=== PATIENT | male | born 1985 | race Caucasian/White ===

== ENCOUNTER 2018-09-20 18:06 | Emergency (ER) | payer SELFPAY ==
[2018-09-20] MEDS ORDERED: Lidocaine 1% (PF) 30 ML VIAL ONE (18:48)
--- NOTE | 2018-09-20 19:55 | RAD ---
RIGHT KNEE 4 VIEWS: Date: 09/26/18 HISTORY: Pain. COMPARISON: None. FINDINGS: No acute fracture or malalignment. There is low grade medial capsular calcification, which may be seq uelae of prior injury. No significant joint effusion. IMPRESSION: No acute abnormality. POS: HOME
[2018-09-20 23:07] LABS: Body Fluid Source SYNOVIAL FLUID
[2018-09-20 23:08] LABS: BF Color Yellow; BF RBC Count - Manual 218 /cumm; BF WBC/Nonhematics Ct. - Manua 741 /cumm; Clarity Cloudy/Turbid (Clear); Tube # EDTA
[2018-09-21 09:35] LABS: BF Segmented Neutrophils 3 %; Cell Count Non Hematic 92 %; Eosinophils 1 %; Lymphocytes 4 %
== END 2018-09-20 19:20 | disposition home or self-care (01) ==
LOC: NAV ERS 18:06
DX: M25.461 Effusion, right knee (principal); F17.210 Nicotine dependence, cigarettes, uncomplicated
CPT/HCPCS: 20610; 82945; 85060; 87070; 87205; 89051; 89060; J2001

== ENCOUNTER 2020-10-03 10:37 | Emergency (ER) | payer SELFPAY ==
[2020-10-03] MEDS ORDERED: methylPREDNISolone Acetate 40 mg/ml Vial ONE (11:03)
== END 2020-10-03 11:12 | disposition home or self-care (01) ==
LOC: NAV ERS 10:37
DX: L25.5 Unspecified contact dermatitis due to plants, except food (principal); F17.210 Nicotine dependence, cigarettes, uncomplicated
CPT/HCPCS: 96372; 99283; J2920

== ENCOUNTER 2021-10-13 11:27 | Emergency (ER) | payer OTHER, SELFPAY ==
[2021-10-13] MEDS ORDERED: Tetracaine 0.5% PF 4 ML BOT ONE (12:08)
[2021-10-13] MEDS ORDERED: Fluorescein Opthalmic Strip ONE (12:08)
== END 2021-10-13 12:36 | disposition home or self-care (01) ==
LOC: NAV ERS 11:27
DX: H16.8 Other keratitis (principal); F17.210 Nicotine dependence, cigarettes, uncomplicated
CPT/HCPCS: 99283